=== PATIENT | female | born 1935 | race Caucasian/White ===

== ENCOUNTER 2016-10-15 10:25 | Observation (INO) | payer MEDICARE, BC ==
[~2016-10-15] VITALS: Ht 168.9 cm; Wt 75.5 kg
[2016-10-15] MEDS ORDERED: SODIUM CHLORIDE 0.9% 1,000 ML IV SCH (10:54)
[2016-10-15] MEDS ORDERED: VANCOMYCIN PMX 1GM/200ML 200 ML IVPB ONE (11:00)
[2016-10-15 11:02] VITALS: BP 139/80
[2016-10-15] MEDS ORDERED: LEVO5TAB29 PO (11:35)
[2016-10-15] MEDS ORDERED: ASPI-496 PO (11:35)
[2016-10-15] MEDS ORDERED: LEVO75TA PO (11:35)
[2016-10-15] MEDS ORDERED: ERGO500017 PO (11:35)
[2016-10-15] MEDS ORDERED: MECL-76 PO (11:35)
[2016-10-15] MEDS ORDERED: TADA20TA33 PO (11:35)
[2016-10-15] MEDS ORDERED: MIRA25TA PO (11:35)
[2016-10-15] MEDS ORDERED: SIMV40TA3 PO (11:35)
[2016-10-15] MEDS ORDERED: ONDA8TAB9 PO (11:35)
[2016-10-15] MEDS ORDERED: LAMO200T3 PO (11:35)
[2016-10-15] MEDS ORDERED: ESCI20TA10 PO (11:35)
[2016-10-15] MEDS ORDERED: LIDOCAINE 2%, 20ML ONE ×2 (11:44→11:55)
[2016-10-15] MEDS ORDERED: CEFAZOLIN 1,000 MG ONE (11:44)
[2016-10-15] MEDS ORDERED: CEFAZOLIN PMX 1GM/50ML 50 ML ONE (11:44)
[2016-10-15] MEDS ORDERED: FENTANYL PF 100 MCG/2ML ONE (11:44)
[2016-10-15] MEDS ORDERED: MIDAZOLAM 1 MG/ML, 5ML ONE (11:44)
[2016-10-15] MEDS ORDERED: ONDANSETRON 2MG/ML, 2ML IV PRN (15:00)
[2016-10-15] MEDS ORDERED: HYDROcodone/APAP 5/325 TABLET PO PRN (15:00)
[2016-10-15] MEDS ORDERED: MECLIZINE CHEWABLE 25 MG TAB PO PRN (16:00)
[2016-10-15] MEDS ORDERED: ONDANSETRON ODT 8 MG PO PRN (16:00)
[2016-10-15 17:03] VITALS: BP 123/64
[2016-10-15 19:10] VITALS: BP 106/67
[2016-10-15] MEDS ORDERED: ZOLPIDEM 5MG TABLET PO PRN (21:00)
[2016-10-15] MEDS ORDERED: SIMVASTATIN 40 MG TABLET PO SCH (21:00)
[2016-10-15] MEDS: SODIUM CHLORIDE FLUSH 10ML SYR IVF SCH (21:18)
[2016-10-15] MEDS: CEFAZOLIN PMX 1GM/50ML 50 ML IVPB SCH (22:06)
[2016-10-16 01:26] VITALS: BP 149/76
[2016-10-16] MEDS ORDERED: ASPIRIN 325 MG TABLET EC PO SCH (06:00)
[2016-10-16] MEDS ORDERED: LEVOTHYROXINE 75 MCG TABLET PO SCH (06:00)
[2016-10-16] MEDS: CEFAZOLIN PMX 1GM/50ML 50 ML IVPB SCH (06:28)
[2016-10-16 08:38] VITALS: BP 137/94
[2016-10-16] MEDS: SODIUM CHLORIDE FLUSH 10ML SYR IVF SCH (08:50)
[2016-10-16] MEDS ORDERED: CITALOPRAM 20 MG TABLET PO SCH (09:00)
[2016-10-16] MEDS ORDERED: MIRABEGRON HOMEMEDPO SCH (09:00)
[2016-10-16] MEDS ORDERED: TADALAFIL HOMEMEDPO SCH (09:00)
[2016-10-16] MEDS ORDERED: LORATADINE 10 MG TABLET PO PRN (09:00)
[2016-10-16] MEDS ORDERED: LAMOTRIGINE 200 MG TABLET PO SCH (09:00)
[2016-10-29] MEDS ORDERED: ERGOCALCIFEROL 50,000 UNIT CAPSULE PO SCH (09:00)
== END 2016-10-16 10:10 | disposition home or self-care (01) ==
LOC: CACL 10:25 → ORIP 14:35 → 5SO 14:58 → DCLOUNGE 10-16 09:51
PROVIDERS: ADMIT Internal Medicine Cardiovascular Disease; ATTEND Internal Medicine Cardiovascular Disease
DX: R00.1 Bradycardia, unspecified (principal); I27.2 Other secondary pulmonary hypertension; E78.5 Hyperlipidemia, unspecified; I10 Essential (primary) hypertension; G47.30 Sleep apnea, unspecified; Z95.2 Presence of prosthetic heart valve
CPT/HCPCS: 33208; 36415; 71010; 71020; 85610; 96365; 96375; 99156; 99157; C1779; C1785; C1892; G0378; J0690; J2250; J3010; J3490

== ENCOUNTER → 2017-10-08 | Outpatient (CLI) | payer MEDICARE, BC ==
[~2017-10-08] MED LIST: ASPI-496 PO; ERGO500017 PO; ESCI20TA10 PO; LAMO200T3 PO; LEVO5TAB29 PO; LEVO75TA PO; MECL-76 PO; MIRA25TA PO; ONDA8TAB9 PO; SIMV40TA3 PO; TADA20TA33 PO
== END | disposition home or self-care (01) ==
LOC: CFH 08:25
PROVIDERS: ATTEND Nurse Practitioner Primary Care
DX: R20.2 Paresthesia of skin (principal); E03.9 Hypothyroidism, unspecified; E78.2 Mixed hyperlipidemia; F06.31 Mood disorder due to known physiological condition with depressive features; K21.9 Gastro-esophageal reflux disease without esophagitis; I10 Essential (primary) hypertension; I48.91 Unspecified atrial fibrillation; I63.9 Cerebral infarction, unspecified; M79.89 Other specified soft tissue disorders
CPT/HCPCS: 93970

== ENCOUNTER → 2017-11-03 | Outpatient (CLI) | payer MEDICARE, BC | END | disposition home or self-care (01) | LOC: CFH 12:13 | PROVIDERS: ATTEND Internal Medicine Cardiovascular Disease | DX: I07.1 Rheumatic tricuspid insufficiency (principal); E78.5 Hyperlipidemia, unspecified; Z85.828 Personal history of other malignant neoplasm of skin; Z88.5 Allergy status to narcotic agent | CPT/HCPCS: 93306 ==

== ENCOUNTER 2018-07-06 08:05 | Outpatient (CLI) | payer MEDICARE, BC | END 2018-07-06 23:59 | disposition home or self-care (01) | LOC: CFH 08:05 | PROVIDERS: ATTEND Nurse Practitioner Primary Care | DX: Z13.820 Encounter for screening for osteoporosis (principal); Z95.4 Presence of other heart-valve replacement; Z78.0 Asymptomatic menopausal state | CPT/HCPCS: 77080 ==

== ENCOUNTER 2018-07-13 06:54 | Emergency (ER) | payer MEDICARE, BC ==
[~2018-07-13] VITALS: Ht 170.2 cm; Wt 81.1 kg
--- NOTE | 2018-07-13 07:09 | NUR ---
Pt to room from triage pushed in wheelchair. NADN. No obvious defecits observed.
[2018-07-13] MEDS ORDERED: SODIUM CHLORIDE FLUSH 10ML SYR IVF ONE (07:30)
--- NOTE | 2018-07-13 07:57 | NUR ---
Pt resting on gurFriendCode c/o left sided back pain after she fell a "few weeks ago". NADN. Both bedrails up for safety measures. Call [facility] within reach. Pt connected to NIBP, continous pulse ox, and hospital monitor. Pt denies cp, sob, n/v/d, dizziness, or syncope.
[2018-07-13 08:18] LABS: BASOPHILS # (AUTO) 0.02 x10^3/uL (0-0.1); BASOPHILS % (AUTO) 0 % (0-1); EOSINOPHILS # (AUTO) 0.26 x10^3/uL (0-0.4); EOSINOPHILS % (AUTO) 5 % (1-7); LYMPHOCYTES % (AUTO) 24 % (22-44); MD NO; MEAN CORPUSCULAR HEMOGLOBIN 32.4 pg (27.0-34.8); MEAN CORPUSCULAR HGB CONC 32.8 g/dL (32.4-35.8); MEAN CORPUSCULAR VOLUME 98.9 fL (80-100); MEAN PLATELET VOLUME 6.9 fL (7.4-10.4); MONOCYTES # (AUTO) 0.39 x10^3/uL (0.2-0.8); MONOCYTES % (AUTO) 7 % (2-9); NEUTROPHILS # (AUTO) 3.83 x10^3/uL (1.8-6.8); NEUTROPHILS % (AUTO) 65 % (42-75); PLATELET COUNT 271 x10^3/uL (130-400); RED BLOOD COUNT 4.14 x10^6/uL (3.82-5.3); RED CELL DISTRIBUTION WIDTH 14.1 % (9.6-15.2)
[2018-07-13 08:28] LABS: INTERNATIONAL NORMALIZED RATIO 1.03 (0.93-1.1); PROTHROMBIN TIME 10.8 Seconds (9.6-11.5)
[2018-07-13 08:30] LABS: ALBUMIN 3.9 g/dL (3.4-5.0); CALCIUM 9.1 mg/dL (8.5-10.1); CREATININE 0.95 mg/dL (0.55-1.02)
[2018-07-13 08:41] LABS: ANION GAP 7 mmol/L (5-15); CHLORIDE 108 mmol/L (98-107)
[2018-07-13] MEDS ORDERED: MORPHINE SULFATE 4 MG/ML, 1ML ONE (09:18)
[2018-07-13] MEDS ORDERED: ONDANSETRON 2MG/ML, 2ML ONE (09:18)
[2018-07-13] MEDS ORDERED: MORPHINE SULFATE 4 MG/ML, 1ML IVPush PRN (09:30)
[2018-07-13] MEDS ORDERED: ONDANSETRON 2MG/ML, 2ML IVPush ONE (09:30)
[2018-07-13 10:41] LABS: MICROSCOPIC NOT IND
[2018-07-13 10:50] LABS: CULTURE INDICATED? NO
[2018-07-13] MEDS ORDERED: OMNIPAQUE 350 MG/ML, 100ML BOTTLE ONE (11:20)
--- NOTE | 2018-07-13 11:35 | NUR ---
Patient given discharge instructions and they have confirmed that they understand the instructions. Patient pushed in wheelchair by ED RN. Pt left with all personal belongings, d/c paperwork, and prescriptions.
[2018-07-13 11:36] VITALS: BP 168/58
== END 2018-07-13 11:39 | disposition home or self-care (01) ==
LOC: ED 09:39
DX: R10.2 Pelvic and perineal pain (principal); M25.552 Pain in left hip; K59.00 Constipation, unspecified; I11.9 Hypertensive heart disease without heart failure
CPT/HCPCS: 36415; 72193; 73552; 80048; 81003; 82040; 85025; 85610; 85730; 93971; 96374; 96375; 99284; J2270; J2405; Q9967

== ENCOUNTER 2018-09-20 15:35 | Outpatient (CLI) | payer MEDICARE, BC | END 2018-09-20 23:59 | disposition home or self-care (01) | LOC: CFH 15:35 | PROVIDERS: ATTEND Physician Assistant Surgical | DX: M25.562 Pain in left knee (principal); M79.89 Other specified soft tissue disorders ==

== ENCOUNTER 2019-11-10 07:55 | Inpatient (IN) | payer MEDICARE, BC ==
[~2019-11-10] VITALS: Ht 170.2 cm; Wt 81.4 kg
[~2019-11-10 07:55] MED LIST changes: +SIMV40TA20 PO; -SIMV40TA3 PO
--- NOTE | 2019-11-10 08:30 | NUR ---
PT SITTING ONBED WITH EYES CLOSED, PROVIDED A WARM BLAKET. PT DENIES ANY ADDITIONAL NEEDS AT THIS TIME. CALL LIGHT WITHIN REACH, FALL PRECAUTIONS IN PLACE. NIECE AT THE BEDSIDE.
[2019-11-10 08:55] LABS: BASOPHILS # (AUTO) 0.02 x10^3/uL (0-0.1); BASOPHILS % (AUTO) 0 % (0-1); EOSINOPHILS # (AUTO) 0.08 x10^3/uL (0-0.4); EOSINOPHILS % (AUTO) 1 % (1-7); LYMPHOCYTES # (AUTO) 0.94 x10^3/uL (1-3.4); LYMPHOCYTES % (AUTO) 14 % (22-44); MD NO; MEAN CORPUSCULAR HEMOGLOBIN 31.6 pg (27.0-34.8); MEAN CORPUSCULAR HGB CONC 32.6 g/dL (32.4-35.8); MEAN PLATELET VOLUME 7.7 fL (7.4-10.4); MONOCYTES # (AUTO) 0.43 x10^3/uL (0.2-0.8); MONOCYTES % (AUTO) 6 % (2-9); NEUTROPHILS # (AUTO) 5.42 x10^3/uL (1.8-6.8); NEUTROPHILS % (AUTO) 79 % (42-75); PLATELET COUNT 224 x10^3/uL (130-400); RED BLOOD COUNT 4.57 x10^6/uL (3.82-5.3); RED CELL DISTRIBUTION WIDTH 13.6 % (9.6-15.2)
[2019-11-10 08:56] LABS: ALBUMIN 3.7 g/dL (3.4-5.0); ANION GAP 6 mmol/L (5-15); CHLORIDE 111 mmol/L (98-107); CREATININE 1.05 mg/dL (0.55-1.02)
--- NOTE | 2019-11-10 09:05 | NUR ---
PT SITTING UPRIGHT ON GURNEY WITH NIECE AT BEDSIDE. PT PROVIDED A WARM BALNKET, BEAR PAWS WARMER IN PLACE AND GLYCERIN SWABS. PT STATES SHE FEELS "FINE". PT DENIES ANY ADDITIONAL NEEDS AT THIS TIME. CALL LIGHT WITHIN REACH AND FALL PRECAUTIONS IN THIS PLACE.
[2019-11-10 09:12] LABS: MICROSCOPIC AUTO
--- NOTE | 2019-11-10 09:12 | NUR ---
pt to ct via rajesh
--- NOTE | 2019-11-10 09:23 | NUR ---
PT RETURNED FROM CT
--- NOTE | 2019-11-10 10:10 | NUR ---
PT UP TO BEDSIDE COMMODE WITH AJIT GARCIA. PT SLIGHTLY UNSTEADY ON FEET AND MOVES SLOWLY. PT REPORTS "SOME DIZZINESS UPON STANDING. PT DENIES ANY OTHER NEEDS AT THIS TIME. BACK IN BED COMFORTABLY, NIECE AT BEDSIDE. CALL LIGHT WITHIN REACH. FALL PRECAUTIONS IN PLACE.
[2019-11-10] MEDS ORDERED: CLOP75TA52 PO (10:48)
[2019-11-10] MEDS ORDERED: GABA-827 PO (10:50)
[2019-11-10] MEDS ORDERED: SAMBUCOL PO (10:54)
[2019-11-10] MEDS ORDERED: VENL25TA PO (10:54)
--- NOTE | 2019-11-10 11:01 | NUR ---
PT SITTING UPRIGHT ON GURNEY WITH NIECE AT BEDSIDE. PT DENIES NEED TO USE RESTROOM, OR REPOSITIONING. NO ADDITIONAL NEEDS AT THIS TIME. CALL LIGHT WITHIN REACH AND FALL PRECAUTIONS IN PLACE.
--- NOTE | 2019-11-10 11:58 | NUR ---
Pt to be admitted to TELE 2, room 423. Report called to [facility].
[2019-11-10 12:33] VITALS: BP 122/77
[2019-11-10] MEDS ORDERED: DOCUSATE 100 MG CAPSULE PO PRN (13:30)
[2019-11-10] MEDS ORDERED: ONDANSETRON ODT 4 MG PO PRN (13:30)
[2019-11-10] MEDS ORDERED: ACETAMINOPHEN 325 MG TABLET PO PRN (13:30)
[2019-11-10] MEDS ORDERED: POLYETHYLENE GLYCOL 17 GM PACKET PO PRN (13:30)
[2019-11-10] MEDS ORDERED: ONDANSETRON 2MG/ML, 2ML IVPush PRN (13:30)
[2019-11-10 15:23] VITALS: BP_SYST 103; BP_SYST 92; BP_SYST 99; BP_DIAS 62; BP_DIAS 66; BP_DIAS 68
[2019-11-10] MEDS ORDERED: [UNRECOGNIZED DRUG - REMARK] MC SCH (18:00)
[2019-11-10 19:22] VITALS: BP 100/60
[2019-11-10 19:29] VITALS: BP 120/75
[2019-11-10 19:30] VITALS: BP 129/82
[2019-11-10] MEDS ORDERED: SIMVASTATIN 40 MG TABLET PO SCH (21:00)
[2019-11-11 02:24] VITALS: BP 91/62
[2019-11-11 04:42] LABS: CHLORIDE 109 mmol/L (98-107)
[2019-11-11 04:57] LABS: ALANINE AMINOTRANSFERASE 21 U/L (12-78); ALBUMIN 3.4 g/dL (3.4-5.0); ALKALINE PHOSPHATASE 75 U/L (45-117); ANION GAP 4 mmol/L (5-15); BILIRUBIN,TOTAL 0.5 mg/dL (0.2-1.0); CALCIUM 9.2 mg/dL (8.5-10.1); CREATININE 1.06 mg/dL (0.55-1.02); TOTAL PROTEIN 6.9 g/dL (6.4-8.2)
[2019-11-11] MEDS ORDERED: LEVOTHYROXINE 75 MCG TABLET PO SCH (06:00)
[2019-11-11 06:20] VITALS: BP 118/71
[2019-11-11] MEDS ORDERED: TOLT4CAP12 PO (11:23)
[2019-11-11] MEDS ORDERED: METH1TAB21 PO (11:23)
[2019-11-11] MEDS ORDERED: PANT40TA6 PO (11:23)
[2019-11-11] MEDS ORDERED: LAMO200T3 PO (11:23)
[2019-11-11] MEDS ORDERED: FLEC50TA25 PO ×2 (11:23→15:59)
[2019-11-11] MEDS ORDERED: SOLI5TAB7 PO (11:23)
[2019-11-11] MEDS ORDERED: DABI150C PO (11:23)
[2019-11-11] MEDS ORDERED: CHOL10003 PO (12:00)
[2019-11-11 15:25] VITALS: BP 136/74
== END 2019-11-11 17:32 | disposition home or self-care (01) | DRG 309 ==
LOC: ED 08:48 → 4WST 11:00
PROVIDERS: ADMIT Hospitalist; ATTEND Family Medicine
DX: I48.0 Paroxysmal atrial fibrillation (principal); D68.69 Other thrombophilia; G62.9 Polyneuropathy, unspecified; N32.81 Overactive bladder; F32.9 Major depressive disorder, single episode, unspecified; E03.9 Hypothyroidism, unspecified; W18.39XA Other fall on same level, initial encounter; E78.5 Hyperlipidemia, unspecified; Z88.0 Allergy status to penicillin; Z88.8 Allergy status to other drugs, medicaments and biological substances; Z79.01 Long term (current) use of anticoagulants; Z88.2 Allergy status to sulfonamides; Z86.73 Personal history of transient ischemic attack (TIA), and cerebral infarction without residual deficits; Y92.89 Other specified places as the place of occurrence of the external cause; Y99.8 Other external cause status
CPT/HCPCS: 36415; 70450; 72125; 80048; 80053; 81001; 82040; 84443; 85025; 93005; 93306; 99285; G0378